=== PATIENT | male | born 1975 | race Caucasian/White ===

== ENCOUNTER → 2016-06-30 | Outpatient (CLI) | payer OTHER | LOC: EXRD 11:18 | DX: M54.2 Cervicalgia (principal); M54.5 Low back pain; M25.562 Pain in left knee | CPT/HCPCS: 72050; 72110; 73560 ==

== ENCOUNTER → 2021-10-06 | Outpatient (CLI) | payer OTHER | LOC: RAD 16:07 | DX: M79.10 Myalgia, unspecified site (principal) | CPT/HCPCS: 72040 ==

== ENCOUNTER → 2021-10-17 | Outpatient (CLI) | payer OTHER | LOC: US 09:30 | DX: R10.9 Unspecified abdominal pain (principal); R74.8 Abnormal levels of other serum enzymes | CPT/HCPCS: 76700 ==

== ENCOUNTER → 2021-10-21 | Outpatient (CLI) | payer OTHER | LOC: CT 09:40 | DX: K85.90 Acute pancreatitis without necrosis or infection, unspecified (principal) | CPT/HCPCS: Q9967 ==